=== PATIENT | female | born 1970 | race Caucasian/White ===

== ENCOUNTER 2024-03-24 18:15 | Emergency (ER) | payer OTHER ==
[~2024-03-24] VITALS: Ht 167.6 cm; Wt 59.1 kg
[~2024-03-24 18:15] MED LIST: ECHINACEA PO; FISH OIL PO; LORA0.5T PO; MULT-1085 PO; RHODIOLA ROSEA PO; VITAMIN C PO; VITAMIN D PO
[2024-03-24 19:51] VITALS: BP 103/68; PULSE 56; RESP 16; TEMP 98.6; O2SAT 97
== END 2024-03-24 19:52 | disposition home or self-care (01) ==
LOC: ER 18:15
DX: S27.818A Other injury of esophagus (thoracic part), initial encounter (principal); Z88.2 Allergy status to sulfonamides; Z88.1 Allergy status to other antibiotic agents; Z88.8 Allergy status to other drugs, medicaments and biological substances; Z79.899 Other long term (current) drug therapy; X58.XXXA Exposure to other specified factors, initial encounter; Y93.89 Activity, other specified; Y92.89 Other specified places as the place of occurrence of the external cause; Y99.8 Other external cause status
CPT/HCPCS: 70490; 99284